=== PATIENT | male | born 2000 | race African-American/Black ===

== ENCOUNTER 2022-02-16 11:31 | Emergency (ER) | payer MEDICAID, SELFPAY | END 2022-02-16 13:54 | disposition left against medical advice (07) | PROVIDERS: Emergency Provider Emergency Medicine | DX: S59.919A Unspecified injury of unspecified forearm, initial encounter (principal); X58.XXXA Exposure to other specified factors, initial encounter; Y93.9 Activity, unspecified; Y92.9 Unspecified place or not applicable; Y99.9 Unspecified external cause status ==